=== PATIENT | female | born 1990 | race Hispanic/Latino ===

== ENCOUNTER 2019-06-30 04:40 | Inpatient (IN) | payer MEDICAID, OTHER, SELFPAY ==
[~2019-06-30] VITALS: Ht 154.9 cm; Wt 80.7 kg
[2019-06-30 05:11] LABS: APPEARANCE,URINE Clear (CLEAR); BILIRUBIN,URINE Negative (NEGATIVE); COLOR,URINE Yellow (YELLOW); GLUCOSE, URINE (UA) Negative (NEGATIVE); KETONES,URINE Trace mg/dL (NEGATIVE); LEUKOCYTE ESTERASE ,URINE Trace (NEGATIVE); NITRATE,URINE Negative (NEGATIVE); OCCULT BLOOD,URINE Trace (NEGATIVE); PH,URINE 6.5 (5.0-8.0); PROTEIN,URINE Negative (NEGATIVE); UROBILINOGEN,URINE 0.2 mg/dL (0.2-1.0)
[2019-06-30 05:18] LABS: AMPHET/METH SCREEN,URINE NEGATIVE (NEGATIVE); BARBITURATE SCREEN, URINE NEGATIVE (NEGATIVE); BENZODIAZEPINES SCREEN,URINE NEGATIVE (NEGATIVE); CANNABINOID SCREEN,URINE NEGATIVE (NEGATIVE); COCAINE SCREEN,URINE NEGATIVE (NEGATIVE); OPIATE SCREEN,URINE NEGATIVE (NEGATIVE); PHENCYCLIDINE SCREEN,URINE NEGATIVE (NEGATIVE)
[2019-06-30 05:38] LABS: BACTERIA,URINE Few /HPF (None Seen); RBC,URINE 0-1 /HPF (0-1)
[2019-06-30] MEDS ORDERED: AMPICILLIN 2GM+NS 100ML 100 ML IV SCH (07:15)
[2019-06-30] MEDS ORDERED: LACTATED RINGERS 1000ML 1,000 ML IV ONE (07:44)
[2019-06-30 08:52] LABS: HEMATOCRIT 33.1 % (36-48); MEAN CORPUSCULAR HEMOGLOBIN 27.1 pg (27.0-33.0); MEAN CORPUSCULAR HGB CONC 31.7 g/dL (32.0-36.0); MEAN CORPUSCULAR VOLUME 85.3 fL (79-99); RED BLOOD CELL COUNT(AUTO) 3.88 MIL/uL (4.00-5.50); RED CELL DISTRIBUTION WIDTH 15.5 % (11.0-15.5); WHITE BLOOD COUNT (AUTO) 10.3 K/uL (4.8-10.8)
[2019-06-30] MEDS ORDERED: OXYTOCIN 10 USP UNITS/ML 20 UNIT in LACTATED RINGERS 1000ML 1,000 ML IV SCH (09:15)
[2019-06-30] MEDS ORDERED: OXYTOCIN-LR 20 UNITS/1000 ML 1,000 ML IV SCH (09:30)
[2019-06-30] MEDS: AMPICILLIN 1GM+NS 50ML 50 ML IV SCH ×3 (12:20→20:28)
[2019-06-30] MEDS: PROMETHAZINE HCL 25 MG/ML 1ML AMPULE IM SCH ×2 (14:42→18:08)
[2019-06-30] MEDS: MEPERIDINE-PF 50 MG/ML SYG IVP SCH ×2 (14:43→18:08)
[2019-06-30] MEDS ORDERED: PROMETHAZINE HCL 25 MG/ML 1ML AMPULE IM SCH (19:00)
[2019-06-30] MEDS ORDERED: MEPERIDINE-PF 50 MG/ML SYG IVP ONE (19:00)
[2019-06-30] MEDS ORDERED: OXYTOCIN 10 USP UNITS/ML ONE (19:16)
[2019-06-30] MEDS ORDERED: LIDOCAINE HCL 1% 20 ML VIAL ONE (19:24)
[2019-06-30] MEDS ORDERED: MISOPROSTOL 200 MCG TABLET ONE (19:37)
[2019-06-30] MEDS ORDERED: MISOPROSTOL 200 MCG TABLET PR SCH (20:30)
[2019-06-30] MEDS ORDERED: IBUPROFEN 600 MG TABLET PO PRN (20:30)
[2019-06-30] MEDS ORDERED: ACETAMINOPHEN-CODEINE 300/30MG TAB PO PRN (20:30)
[2019-06-30] MEDS ORDERED: DIPH,PERTUSS(ACELL),TET VAC/PF 0.5 ML VIAL IM PRN (20:30)
[2019-06-30] MEDS ORDERED: OXYTOCIN 10 UNIT/1ML 10ML VIAL IV ONE (20:30)
[2019-06-30] MEDS ORDERED: ACETAMINOPHEN 325 MG TAB PO PRN (20:30)
[2019-06-30] MEDS ORDERED: WITCH HAZEL 1 PAD TP PRN (20:30)
[2019-06-30] MEDS ORDERED: OXYTOCIN-LR 20 UNITS/1000 ML IV SCH (20:30)
[2019-06-30] MEDS ORDERED: BENZOCAINE/LANOLIN/ALOE VERA 60 ML AEROSOL TP PRN (20:30)
[2019-06-30] MEDS ORDERED: MEASLES/MUMPS/RUBELLA VACCINE, LIVE 0.5 ML/VIAL SQ PRN (20:30)
[2019-06-30] MEDS ORDERED: METHYLERGONOVINE MALEATE 0.2 MG/1 ML ML IM ONE (20:30)
[2019-06-30] MEDS ORDERED: OXYTOCIN 10 USP UNITS/ML IM SCH (20:30)
[2019-06-30] MEDS ORDERED: LANOLIN 30GM OINTMENT TP PRN (20:30)
[2019-06-30] MEDS: DOCUSATE SODIUM 100 MG CAP PO SCH (21:09)
[2019-06-30 22:00] VITALS: BP 116/73
[2019-07-01] MEDS: AMPICILLIN 1GM+NS 50ML 50 ML IV SCH ×4 (00:05→11:51)
[2019-07-01 00:11] LABS: HEMATOCRIT 30.1 % (36-48)
[2019-07-01 02:15] VITALS: BP 115/63
[2019-07-01] MEDS ORDERED: PREN-18 PO (03:19)
[2019-07-01 04:00] VITALS: BP 104/58
--- NOTE | 2019-07-01 06:15 | NUR ---
PAUL CATHETER F/C REMOVED , INTACT, TOLERATED PROCEDURE WELL, SMALL AMT LOCHIA Addendum: 07/01/19 at 0632 by VARGAS HENDRICKSON LVN Amended: Links added.
[2019-07-01 07:10] LABS: MEAN CORPUSCULAR HEMOGLOBIN 26.7 pg (27.0-33.0); MEAN CORPUSCULAR HGB CONC 31.9 g/dL (32.0-36.0); MEAN CORPUSCULAR VOLUME 83.9 fL (79-99); RED BLOOD CELL COUNT(AUTO) 3.22 MIL/uL (4.00-5.50); RED CELL DISTRIBUTION WIDTH 15.1 % (11.0-15.5); WHITE BLOOD COUNT (AUTO) 15.5 K/uL (4.8-10.8)
[2019-07-01 07:40] VITALS: BP 100/59
[2019-07-01 08:11] LABS: HEPATITIS Bs ANTIGEN SCREEN P Negative (Negative)
[2019-07-01] MEDS: DOCUSATE SODIUM 100 MG CAP PO SCH (09:04)
[2019-07-01 11:30] VITALS: BP 120/57
[2019-07-01 12:26] LABS: RAPID PLASMA REAGIN NONREACTIVE (NONREACTIVE)
--- NOTE | 2019-07-01 12:46 | NUR ---
CM NOTE/PRODUCTION BOW MAKER SPOKE WITH PRIMARY NURSE, JAVAD MENENDEZ, REGARDING PROMPT DROP IN. PER NURSE, PATIENT STATES SHE HAD CARE IN [place] AND WILL BE RETURNING TO [place] 1 WEEK AFTER DISCHARGE. NO CONCERNS VOICED. PATIENT PENDING DISCHARGE TO HOME TODAY PER MD ORDERS.
--- NOTE | 2019-07-01 13:15 | NUR ---
verbal and written discharge instructions given, informed of the follow up appointment, prescription given, all questions answered, informed to call the doctor for future concerns, pt voiced understanding to all things discussed Addendum: 07/01/19 at 1802 by JAVAD DANGELO RN Amended: Links added.
[2019-07-01 16:32] VITALS: BP 108/66
--- NOTE | 2019-07-01 19:50 | NUR ---
PT. TAKEN TO CAR WITH BABY BY DEVIN TORRES (CASH APPLICATIONS CLERK) VIA W/C. DENIED DISCOMFORT.
== END 2019-07-01 19:50 | disposition home or self-care (01) | DRG 807 ==
LOC: EDH 04:40 → LDH 04:41 → OBSVTOIN 04:41 → WSH 07-01 01:35
PROVIDERS: ADMIT Specialist; ATTEND Specialist
PROC: 10E0XZZ Delivery of Products of Conception, External Approach (ICD-10-PCS; principal; 2019-06-30)
PROC: 0W8NXZZ Division of Female Perineum, External Approach (ICD-10-PCS; 2019-06-30)
PROC: 3E0234Z Introduction of Serum, Toxoid and Vaccine into Muscle, Percutaneous Approach (ICD-10-PCS; 2019-06-30)
PROC: 3E0134Z Introduction of Serum, Toxoid and Vaccine into Subcutaneous Tissue, Percutaneous Approach (ICD-10-PCS; 2019-06-30)
DX: O69.81X0 Labor and delivery complicated by cord around neck, without compression, not applicable or unspecified (principal); Z37.0 Single live birth; Z23 Encounter for immunization; O62.2 Other uterine inertia; Z3A.39 39 weeks gestation of pregnancy
CPT/HCPCS: 36415; 76815; 80305; 81001; 85014; 85018; 85027; 86592; 86701; 86850; 86900; 86901; 87340; 87390; A4314; A4351; G0378; J0290; J2175; J2550; J2590; J7120